=== PATIENT | female | born 1995 | race Caucasian/White ===

== ENCOUNTER 2017-09-26 15:27 | Emergency (ER) | payer OTHER ==
[~2017-09-26] VITALS: Ht 165.1 cm; Wt 112.0 kg
[2017-09-26 15:30] VITALS: Ht 165.1 cm; Wt 112.0 kg
[2017-09-26 15:55] LABS: microscopic required? NO
[2017-09-26 16:17] LABS: BASOPHIL % 0.4 % (0-2); PLATELET COUNT 285 x10^3mcL (130-400)
[2017-09-26 16:22] LABS: urine erythrocyte NEGATIVE (NEGATIVE)
[2017-09-26 17:13] VITALS: BP 122/67
== END 2017-09-26 17:13 | disposition home or self-care (01) ==
LOC: ED 15:27
PROVIDERS: Emergency Medicine
DX: O20.0 Threatened abortion (principal); M54.5 Low back pain; R10.30 Lower abdominal pain, unspecified; Z3A.12 12 weeks gestation of pregnancy
CPT/HCPCS: 36415

== ENCOUNTER 2017-09-29 09:36 | Emergency (ER) | payer OTHER ==
[~2017-09-29] VITALS: Ht 165.1 cm; Wt 110.7 kg
[2017-09-29 09:43] VITALS: BP 119/85; Ht 165.1 cm; Wt 110.7 kg
== END 2017-09-29 12:40 | disposition home or self-care (01) ==
LOC: ED 09:36
DX: O20.0 Threatened abortion (principal)

== ENCOUNTER 2017-10-15 18:13 | Emergency (ER) | payer OTHER ==
[~2017-10-15] VITALS: Ht 165.1 cm; Wt 113.4 kg
[2017-10-15 18:41] VITALS: Ht 165.1 cm; Wt 113.4 kg
[2017-10-15 20:20] LABS: BASOPHIL % 0.2 % (0-2); PLATELET COUNT 306 x10^3mcL (130-400)
[2017-10-15 20:36] LABS: ALBUMIN 3.5 g/dL (3.4-5.0); ALKALINE PHOSPHATASE 46 U/L (46-116); ALT/SGPT 22 U/L (14-59); AST/SGOT 12 U/L (15-37); BILIRUBIN TOTAL 0.3 mg/dL (0.20-1.00); CALCIUM 8.7 mg/dL (8.5-10.1); CARBON DIOXIDE 30.4 mmol/L (21-32); CREATININE SERUM 0.7 mg/dL (0.6-1.0); GFR1 > 60 mL/min; GLUCOSE SERUM 84 mg/dL (74-106); TOTAL PROTEIN, SERUM 7.2 g/dL (6.4-8.2)
[2017-10-15 20:45] LABS: CHLORIDE SERUM 107 mmol/L (98-107); POTASSIUM SERUM 4.2 mmol/L (3.5-5.1); SODIUM SERUM 139 mmol/L (136-145)
[2017-10-15 20:51] LABS: UA SPECIFIC GRAVITY 1.015 (1.005-1.035); microscopic required? YES; urine erythrocyte 2+ (NEGATIVE)
[2017-10-15 22:31] VITALS: BP 122/76
== END 2017-10-15 22:31 | disposition home or self-care (01) ==
LOC: ED 18:13
PROVIDERS: Emergency Medicine
DX: O20.0 Threatened abortion (principal); Z3A.01 Less than 8 weeks gestation of pregnancy
CPT/HCPCS: 36415

== ENCOUNTER 2018-01-13 09:51 | Emergency (ER) | payer OTHER ==
[~2018-01-13] VITALS: Ht 165.1 cm; Wt 112.5 kg
[2018-01-13 09:55] VITALS: Ht 165.1 cm; Wt 112.5 kg
[2018-01-13 10:40] VITALS: BP 127/76
== END 2018-01-13 10:39 | disposition home or self-care (01) ==
LOC: ED 09:51
DX: O21.9 Vomiting of pregnancy, unspecified (principal); Z3A.20 20 weeks gestation of pregnancy; R10.30 Lower abdominal pain, unspecified